=== PATIENT | female | born 1980 | race Caucasian/White ===

== ENCOUNTER 2024-01-05 09:45 | Outpatient (AMB) | payer OTHER, SELFPAY ==
--- NOTE | 2024-01-05 09:48 | AM.OFFWIN_ITS ---
Intake Vital Signs 01/05/24 09:59 01/05/24 10:05 Height 5 ft 4.17 in Weight 191 lb 4 oz BMI 32.7 BP 129/91 H 137/92 H Blood Pressure Location Lt brachial Rt brachial Position Sitting Sitting Respiration 14 Pulse 106 H Pulse Source Pulse Oximeter Temp 98.4 F Temp Source Temporal Artery Scan Pulse Oximetry (%) 96 Oxygen Delivery Method Room Air Intake Visit Reasons: Sore throat Intake Note: Sore throat Accompanied by: Child Allergies No Known Allergies [No Known Allergies*] Allergy (Verified 01/05/24 10:20) Medication List - Last Reconciled 01/05/24 by Shivani Awan, ROOFING APPRENTICE- multivitamin 1 tab PO DAILY Do you need a note to return to daycare/school/sports/work: No HPI HPI Comments History of Present Illness Details Here today with the complaints of a mild sore throat and runny nose. Symptoms started on Wednesday. Wonders if it is allergies. However also worried about strep. Reports that she was treated for strep 12/09/2023 with amoxicillin. She completed the course of therapy and her strep throat symptoms went away until Wednesday when she developed a mild sore throat. Has known seasonal allergies and is taking Zyrtec daily. Exposed to a child with recurrent strep pharyngitis. Denies fever, chills, painful swallowing. Review of Systems Const All systems reviewed & are unremarkable except as noted in HPI and below Physical Exam Vital Signs: Last Vital Signs Temp 98.4 F 01/05/24 09:59 Pulse 106 H 01/05/24 09:59 Resp 14 01/05/24 09:59 BP 137/92 H 01/05/24 10:05 Pulse Ox 96 01/05/24 09:59 Oxygen Delivery Method Room Air 01/05/24 09:59 BMI result Body Mass Index 32.7 Const Other: Awake alert NAD Sclera and conjunctiva clear bilat Nares patent, turbinates pale and edematous R>L no sinus tenderness with palpation bilat TM intact + effusions bilat MMM, pharynx WNL RRR LS CTAB Results AMB Rapid Strep AMB Rapid Strep Negative Last Edit by Bethany Rodríguez CMA on 01/05/24 11:0 1 Results Reviewed Results Reviewed: Laboratory Last Values Strep Scn Rapid Clinic Negative 06/05/24 10:11 Assessment & Plan Assessment & Plan (1) Sore throat: Code(s): J02.9 - Acute pharyngitis, unspecified (2) Pharyngitis: Code(s): J02.9 - Acute pharyngitis, unspecified Qualifiers: Pharyngitis/tonsillitis etiology: unspecified etiology Qualified Code(s): J02.9 - Acute pharyngitis, unspecified Plan: . Plan . Orders: Orders Throat Culture Today EMILE Velasco J02.9 - Acute pharyngitis, unspecified AMB Rapid Strep Screen Today Nikolai Kelley MD J02.9 - Acute pharyngitis, unspecified Patient Instructions: Rapid strep negative today. Request for strep culture. This was obtained. Patient will be contacted with the results. If positive we will send antibiotic to [facility] on [facility] in [place]. Exam today more consistent with an allergic cause. Advised to add Flonase 1 spray each nostril to her daily regimen. Continue taking daily antihistamine. Coding Level of Care Code Est Pt Level 4 (71142) Diagnoses Sore throat J02.9 Pharyngitis, unspecified etiology J02.9 Pharyngitis/tonsillitis etiology: unspecified etiology
[2024-01-05 09:59] VITALS: BP 129/91; PULSE 106; RESP 14; TEMP 36.9; O2SAT 96; BMI 32.7
[2024-01-05 10:05] VITALS: BP 137/92
--- OUTSIDE RECORDS SUMMARY | 2024-01-07 10:18 | XMS_ITS | Continuity of Care Document ---
[facility] Address [address], 4t [place] [address]- Care Team Providers Care Diagnostic Cardiac Sonographer Name Role Phone Lyndsey Castro DO Primary Care Physician Encounter [facility] Date(s): 09/19/19 - 09/26/19 [facility]la [employer] [facility] [address], 4th [place] [address]- Attending Physician: Day Amos MD Referring Physician: Lyndsey Castro DO Allergies, Adverse Reactions, Alerts Substance Reaction Severity Status NKA Active Medications miSOPROStol 200 mcg oral tablet See Instructions, Place 2 tablets between gum and cheek 3 hours before surgery, # 2 tablet, 0 Refills, Maintenance, 04/10/19 12:48:56 EDT Start Date: 04/10/19 Status: Ordered Problem List Condition Effective Dates Status Health Status Inform ant Rh negative(Confirmed) Active Procedures Procedure Date Related Diagnosis Body Site Status Bunionectomy 2018 Completed section 2016 Complete d [place] tooth 2013 Completed [place] tooth 1996 Completed Vital Signs Most recent to oldest [Reference Range]: 1 Weight 97.25 kg (09/19/19 3:13 PM) Blood Pressure [90-138/55-84 mm Hg] 130/ 85mm Hg (09/19/19 3:13 PM) Blood pressure sites Arm, right (09/19/19 3:13 PM) Dry Weight 97.25 kg (09/19/19 3:13 PM) Social History Social History Type Response Smoking Status Never (less than 100 in lifetime); Tobacco user in household: No entered on: 09/19/19 Sex
--- OUTSIDE RECORDS SUMMARY | 2024-01-07 10:18 | XMS_ITS | Continuity of Care Document ---
Author Organization [facility] Address [address] [facility] [address] [facility], 4t [place] [address]- Care Team Providers Care Paleontology Teacher Name Role Phone Matthew CLIFTONLyndsey Primary Care Physician En[facility] Date(s): 01/10/20 - 01/17/20 [facility] [address], [address]th [place] [address]- [facility] Attending Physician: Amber Cordero MD Referring Physician: Ariana Turcios MD Allergies, Adverse Reactions, Alerts Substance Reaction Severity Status NKA Active Medications aspirin 81 mg oral delayed release tablet 162 mg, 2, tablet, By Mouth, Daily, # 90 tablet, Refills 0, Maintenance, 10/26/19 22:01:00 EDT Start Date: 10/26/19 Status: Ordered Multivitamin, By Mouth, 0 Refills, Maintenance, 10/26/19 14:46:00 EDT Start Date: 10/26/19 Status: Ordered Problem List Condition Effective Dates Status Health Status Inform ant History of pre-eclampsia in prior , currently in second trimester(Confirmed) Active Multigravida of advanced mat ernal age in second trimester(Confirmed) Active Obesity during in second trimester(Confirmed) Active Rh negative status during pr egnancy, second trimester, single gestation(Confirmed) Active Single umbilical artery affe cting management of mother in [place] , antepartum(Confirmed) Active Maternal care for low transv erse scar from previous delivery(Confirmed) Active Vital Signs Most recent to oldest [Reference Range]: 1 Blood Pressure [90-138/55-84 mm Hg] 106/ 76mm Hg (01/10/20 10:09 AM) Blood pressure sites Arm, right (01/10/20 10:09 AM) Social History Social History Type Response Smoking Status Never (less than 100 in lifetime); Tobacco user in household: No entered on: 09/19/19 Sex
--- OUTSIDE RECORDS SUMMARY | 2024-01-07 10:18 | XMS_ITS | Continuity of Care Document ---
Author Organization [facility] Address [address] [place] [address]- Care Team Providers Care Basic Acoustic Analyst Name Role Phone Lyndsey Castro DO Primary Care Physician Encounter [facility] Date(s): 06/29/22 - 07/29/[address] [id number] Allergies, Adverse Reactions, Alerts No Known Allergies Immunizations Given and Recorded Vaccine Date Status Refusal Reason tetanus/diphtheria/pertussis, acel(Tdap) 01/23/20 Given Medications acetaminophen 325 mg oral tablet 650 mg, By Mouth, Every 4 hours, not to exceed 4000 mg/day, # 90 tablet, Refills 1, Tot. Refills 1,Maintenance, 04/13/20 9:21:00 EDT, Route to Pharmacy Electronically, [facility]/pharmacy #[id number], 165, cm, 04/10/20 20:24:00 EDT, Height, 109.5, kg, 04/11/20 10... Start Date: 04/13/20 Status: Ordered aspirin 81 mg oral delayed release tablet 162 mg, 2, tablet, By Mouth, Daily, # 90 tablet, Refills 0, Maintenance, 10/26/19 22:01:00 EDT Start Date: 10/26/19 Status: Ordered docusate sodium 100 mg oral capsule 100 mg, 1, capsule, By Mouth, 2 times a day, # 60 capsule, Refills 0, Tot. Refills 0, Maintenance, 04/13/20 9:21:00 EDT, Route to Pharmacy Electronically, [facility]/pharmacy #1234, 165, cm, 04/10/20 20:24:00 EDT, Height, 109.5, kg, 04/11/20 10:20:00 EDT, . Start Date: 04/13/20 Status: Ordered double electric breast pump double electric breast pump, See Instructions, # 1 each, Refills 0, Tot. Refills 0, Maintenance, , 03/04/20 11:53:00 EDT, Supply Start Date: 03/04/20 Status: Ordered ibuprofen 800 mg oral tablet 800 mg, 1, tablet, By Mouth, Every 8 hours, not to exceed 3200 mg/day with food or milk, # 90 tablet, Refills 0, Tot. Refills 0, Maintenance, 04/13/20 9:21:00 EDT, Route to Pharmacy Electronically, [facility]/pharmacy #1234, 165, cm, 04/10/20 20:24:00 EDT,... Start Date: 04/13/20 Status: Ordered Multivitamin, By Mouth, 0 Refills, Maintenance, 10/26/19 14:46:00 EDT Start Date: 10/26/19 Status: Ordered oxyCODONE 5 mg oral tablet 5 mg, 1, tablet, By Mouth, Every 3 hours, PRN, (7-10), # 5 tablet, Refills 0, Tot. Refills 0, Maintenance, Pain , Severe, 04/13/20 9:22:00 EDT, Route to Pharmacy Electronically, [facility]/pharmacy #[id number], Partial fill upon patient request, 165, cm, 04/10/20... Start Date: 04/13/20 Status: Ordered simethicone 80 mg oral tablet, chewable 80 mg, Chew, 3 times a day, PRN, # 90 tablet, Refills 0, Tot. Refills 0, Maintenance, Gas, 209:22:00 EDT, Route to Pharmacy Electronically, [facility]/pharmacy #1234, 165, cm, 04/10/20 20:24:00 EDT, Height, 109.5, kg, 04/11/20 10:20:00 EDT, Dry Weight Start Date: 04/13/20 Status: Ordered Problem List Condition Confirmation Course Effective Dates Status Health St atus Informant Abnormal findings on screening Confirmed Active Elevated blood pressure affecting , antepartum Confirmed Active History of pre-eclampsia in prior , currently in second trimester Confirmed Active Multigravida of advanced maternal age in second trimester Confirmed Active Obesity during in second trimester Confirmed Active Rh negative status during , second trimester, single gestation Confirmed Active Single umbilical artery affecting management of mother in [place] , antepartum Confirmed Active Maternal care for low transverse scar from previous delivery Confirmed Active Social History Social History Type Response Smoking Status Never (less than 100 in lifetime); Tobacco user in household: No entered on: 09/19/19 Sex Patient Care team information Care Team Personnel Name: Lyndsey Castro DO Position: [facility] Physician (General Medicine) Member Role: PCP Address: Address: [address] [place] [address] [place] [address]- Care Team Related Persons Name: DAQUAN COLON Address: [place] Address: [address] [place] [address] Name: ROSA ISELA COLON Address: [place] [address] [place] [address]
--- OUTSIDE RECORDS SUMMARY | 2024-01-07 10:18 | XMS_ITS | Continuity of Care Document ---
Author Organization [facility] [employer] [facility] Address [address] [place] [address], 4t [place] [address]- Care Team Providers Care Ground Mixer Name Role Phone Matthew CLIFTONLyndsey Primary Care Physician [id number] Date(s): 02/26/20 - 05/17/20 [facility] Shahla Maureen[employer] [facility] [address] [facility], [address]th [place] [address]- [facility] Attending Physician: Padmini Matson MD Referring Physician: Gil CARTAGENA, Amber Nina Allergies, Adverse Reactions, Alerts Substance Reaction Severity Status NKA Active Immunizations Given and Recorded Vaccine Date Status Refusal Reason tetanus/diphtheria/pertussis, acel(Tdap) 01/23/20 Given Medications acetaminophen 325 mg oral tablet 650 mg, By Mouth, Every 4 hours, not to exceed 4000 mg/day, # 90 tablet, Refills 1, Tot. Refills 1,Maintenance, 04/13/20 9:21:00 EDT, Route to Pharmacy Electronically, [facility]/pharmacy #[id number], 165, cm, 04/10/20 20:24:00 EDT, [...] 04/13/20 9:21:00 EDT, Route to Pharmacy Electronically, [facility]/pharmacy #1234, 165, cm, 04/10/20 20:24:00 EDT, [...] 04/13/20 9:21:00 EDT, Route to Pharmacy Electronically, [facility]/pharmacy #1234, 165, cm, 04/10/20 20:24:00 EDT,... Start Date: 04/13/20 Status: Ordered Multivitamin, By Mouth, 0 Refills, Maintenance, 10/26/19 14:46:00 EDT Start Date: 10/26/19 Status: Ordered oxyCODONE 5 mg oral tablet 5 mg, 1, tablet, By Mouth, Every 3 hours, PRN, (7-10), # 5 tablet, Refills 0, Tot. Refills 0, Maintenance, Pain , Severe, 04/13/20 9:22:00 EDT, Route to Pharmacy Electronically, [facility]/pharmacy #[id number], Partial fill upon patient request, 165, cm, 04/10/20... Start Date: 04/13/20 Status: Ordered simethicone 80 mg oral tablet, chewable 80 mg, Chew, 3 times a day, PRN, # 90 tablet, Refills 0, Tot. Refills 0, Maintenance, Gas, 209:22:00 EDT, Route to Pharmacy Electronically, [facility]/pharmacy #1234, 165, cm, 04/10/20 20:24:00 EDT, Height, 109.5, kg, 04/11/20 10:20:00 EDT, Dry Weight Start Date: 04/13/20 Status: Ordered Problem List Condition Effective Dates Status Health Status Inform ant Abnormal findings on prenata l screening(Confirmed) Active Elevated blood pressure affe cting , antepartum(Confirmed) Active History of pre-eclampsia in prior , currently in second trimester(Confirmed) Active Multigravida of advanced mat ernal age in second trimester(Confirmed) Active Obesity during in second trimester(Confirmed) Active Rh negative status during pr egnancy, second trimester, single gestation(Confirmed) Active Single umbilical artery affe cting management of mother in k[place] , antepartum(Confirmed) Active Maternal care for low transv erse scar from previous delivery(Confirmed) Active Social History Social History Type Response Smoking Status Never (less than 100 in lifetime); Tobacco user in household: No entered on: 09/19/19 Sex
--- OUTSIDE RECORDS SUMMARY | 2024-01-07 10:18 | XMS_ITS | Continuity of Care Document ---
Author Organization [facility] Address [address] [place] [address]- Care Team Providers Care Fashion Journalist Name Role Phone Matthew CLIFTONLyndsey Primary Care Physician Encounter [facility] Date(s): 11/27/19 - 12/27/[facility] [address] [place] [address] [facility] Attending Physician: Torey Jonas Admitting Physician: AdmtrTorey Referring Physician: Admtr, Torey Allergies, Adverse Reactions, Alerts Substance Reaction Severity [...]
--- OUTSIDE RECORDS SUMMARY | 2024-01-07 10:18 | XMS_ITS | Continuity of Care Document ---
Author Organization [facility] [employer] [facility] Address [address] [place] [address], 4t [place] [address]- Care Team Providers Care Aerospace Engineer Officer Armament Name Role Phone Lyndsey Castro DO Primary Care Physician ( [phone] Encounter [facility] Date(s): 02/23/20 - 03/01/20 [facility]la [facility] [address] [facility], 4th [place] [address]- [facility] Attending Physician: Amber Cordero MD Allergies, Adverse Reactions, Alerts Substance Reaction Severity Status NKA Active Immunizations Given and Recorded Vaccine Date Status Refusal Reason tetanus/diphtheria/pertussis, acel(Tdap) 01/23/20 Given Medications aspirin 81 mg oral delayed release [...] Most recent to oldest [Reference Range]: 1 Height 166 cm (02/23/20 1:50 PM) Weight 104 kg (02/23/20 1:50 PM) Body Mass Index [18.5-24.99] 37.74 *>HHI* (02/23/20 1:50 PM) Blood Pressure [90-138/55-84 mm Hg] 135/ 81mm Hg (02/23/20 1:50 PM) Blood pressure sites Arm, left (02/23/20 1:50 PM) Weight Obtained Via Standing scale (02/23/20 1:50 PM) Social History Social History Type Response Smoking Status Never (less than 100 in lifetime); Tobacco user in household: No entered on: 09/19/19 Sex
--- OUTSIDE RECORDS SUMMARY | 2024-01-07 10:18 | XMS_ITS | Continuity of Care Document ---
Author Organization [facility] [employer] [facility] Address [address] [place] [address], 4t [place] [address]- Care Team Providers Care Track Supervisor Name Role Phone Matthew CLIFTON Lyndsey Bart Primary Care Physician [id number] Date(s[facility]/26[facility]20 - 05/23/20 [facility] Shahla Maureen[employer] [facility] [address] [facility], [address]th [place] [address]- [facility] Attending Physician: Chiquita Velez MD Referring Physician: Gil CARTAGENA, Amber Nina Allergies, Adverse Reactions, Alerts Substance Reaction Severity Status NKA Active Immunizations Given and Recorded Vaccine Date Status Refusal Reason tetanus/diphtheria/pertussis, acel(Tdap) 01/23/20 Given Medications acetaminophen 325 mg oral tablet 650 mg, By Mouth, Every 4 hours, not to exceed 4000 mg/day, # 90 tablet, Refills 1, Tot. Refills 1,Maintenance, 04/13/20 9:21:00 EDT, Route to Pharmacy Electronically, [facility]/pharmacy #[id number], 165, cm, 04/10/20 20:24:00 EDT, [...] 04/13/20 9:21:00 EDT, Route to Pharmacy Electronically, [facility]/pharmacy #1234, 165, cm, 04/10/20 20:24:00 EDT, [...] 04/13/20 9:21:00 EDT, Route to Pharmacy Electronically, [facility]/pharmacy #1234, 165, cm, 04/10/20 20:24:00 EDT,... Start Date: 04/13/20 Status: Ordered Multivitamin, By Mouth, 0 Refills, Maintenance, 10/26/19 14:46:00 EDT Start Date: 10/26/19 Status: Ordered oxyCODONE 5 mg oral tablet 5 mg, 1, tablet, By Mouth, Every 3 hours, PRN, (7-10), # 5 tablet, Refills 0, Tot. Refills 0, Maintenance, Pain , Severe, 04/13/20 9:22:00 EDT, Route to Pharmacy Electronically, [facility]/pharmacy #1234, Partial fill upon patient request, 165, cm, 04/10/20... Start Date: 04/13/20 Status: Ordered simethicone 80 mg oral tablet, chewable 80 mg, Chew, 3 times a day, PRN, # 90 tablet, Refills 0, Tot. Refills 0, Maintenance, Gas, 209:22:00 EDT, Route to Pharmacy Electronically, [facility]/pharmacy #1234, 165, cm, 04/10/20 20:24:00 EDT, [...]
--- OUTSIDE RECORDS SUMMARY | 2024-01-07 10:18 | XMS_ITS | Continuity of Care Document ---
Author Organization [facility] [employer] [facility] Address [address] [place] [address], 4t [place] [address]- Care Team Providers Care Food Product Inspector Name Role Phone Matthew Lyndsey CLIFTON Primary Care Physician [id number] Date(s): 02/27/20 - 04/11/20 [facility] [employer] [address] [facility], 4th [place] [address]- [facility] Attending Physician: Day Amos MD Referring Physician: Amber Cordero MD Allergies, Adverse Reactions, Alerts Substance Reaction Severity Status NKA Active Immunizations Given and Recorded Vaccine Date Status Refusal Reason tetanus/diphtheria/pertussis, acel(Tdap) 01/23/20 Given Medications aspirin 81 mg oral delayed release tablet 162 mg, 2, tablet, By Mouth, Daily, # 90 tablet, Refills 0, Maintenance, 10/26/19 22:01:00 EDT Start Date: 10/26/19 Status: Ordered double electric breast pump double electric breast pump, See Instructions, # 1 each, Refills 0, Tot. Refills 0, Maintenance, , 03/04/20 11:53:00 EDT, Supply Start Date: 03/04/20 Status: Ordered Multivitamin, By Mouth, 0 Refills, [...]
--- OUTSIDE RECORDS SUMMARY | 2024-01-07 10:18 | XMS_ITS | Continuity of Care Document ---
Author Organization [facility] [employer] [facility] Address [address] [place] [address], [address]t [place] [address]- Care Team Providers Care Monotype Mechanic Name Role Phone Matthew Lyndsey CLIFTON [id number] Date(s): 02/26/20 - 05/12/20 [facility] Shahla Maureen[employer] [facility] [address] [facility], 4th [place] [address]- [facility] Attending Physician: Amber Cordero MD Allergies, Adverse Reactions, Alerts Substance Reaction Severity Status NKA Active Immunizations Given and Recorded Vaccine Date Status Refusal Reason tetanus/diphtheria/pertussis, acel(Tdap) 01/23/20 Given Medications acetaminophen 325 mg oral tablet 650 mg, By Mouth, Every 4 hours, not to exceed 4000 mg/day, # 90 tablet, Refills 1, Tot. Refills 1,Maintenance, 04/13/20 9:21:00 EDT, Route to Pharmacy Electronically, [facility]/pharmacy #[id number], 165, cm, 04/10/20 20:24:00 EDT, Height, [...] 04/13/20 9:21:00 EDT, Route to Pharmacy Electronically, [facility]/pharmacy #1234, 165, cm, 04/10/20 20:24:00 EDT, Height, 109.5, kg, 04/11/20 10:20:00 EDT, Start Date: 04/13/20 Status: Ordered double electric [...] 04/13/20 9:21:00 EDT, Route to Pharmacy Electronically, [facility]/pharmacy #1234, 165, cm, 04/10/20 20:24:00 EDT,... Start Date: 04/13/20 Status: Ordered Multivitamin, By Mouth, 0 Refills, Maintenance, 10/26/19 14:46:00 EDT Start Date: 10/26/19 Status: Ordered oxyCODONE 5 mg oral tablet 5 mg, 1, tablet, By Mouth, Every 3 hours, PRN, (7-10), # 5 tablet, Refills 0, Tot. Refills 0, Maintenance, Pain , Severe, 04/13/20 9:22:00 EDT, Route to Pharmacy Electronically, [facility]/pharmacy #[id number], Partial fill upon patient request, 165, cm, 04/10/20... Start Date: 04/13/20 Status: Ordered simethicone 80 mg oral tablet, chewable 80 mg, Chew, 3 times a day, PRN, # 90 tablet, Refills 0, Tot. Refills 0, Maintenance, Gas, 209:22:00 EDT, Route to Pharmacy Electronically, [facility]/pharmacy #1234, 165, cm, 04/10/20 20:24:00 EDT, Height, [...]
--- OUTSIDE RECORDS SUMMARY | 2024-01-07 10:18 | XMS_ITS | Continuity of Care Document ---
Author Organization [facility] Address [address] [place] [address], 4t [place] [address]- Care Team Providers Care Maintenance And Repair Worker Name Role Phone Matthew Lyndsey CLIFTON Primary Care Physician En[place] [facility] Date(s): 03/27/20 - 04/03/20 [facility] [address] [facility], 4th [place] [address]- [facility] Attending Physician: Day Amos MD Referring Physician: Gil CARTAGENA, Amber Nina [...]
--- OUTSIDE RECORDS SUMMARY | 2024-01-07 10:18 | XMS_ITS | Continuity of Care Document ---
Author Organization [facility] Mitch valeroviavoohalle [facility] Address [address] [place] [address], 4t [place] [address]- Care Team Providers Care Auto Parts Clerk Name Role Phone Matthew Lyndsey CLIFTON Primary Care Physician ( [phone] En[place] [facility] [place] Date(s): 04/09/20 - 04/16/20 [facility] Shahla Maureenviavoos [facility] [address] [facility], 4th [place] [address]- [facility] Attending Physician: Bronson CARTAGENA, Girma Gannon Allergies, Adverse Reactions, Alerts Substance Reaction Severity Status NKA Active Immunizations Given and Recorded Vaccine Date Status Refusal Reason tetanus/diphtheria/pertussis, acel(Tdap) 01/23/20 Given Medications acetaminophen 325 mg oral tablet 650 mg, By Mouth, Every 4 hours, not to exceed 4000 mg/day, # 90 tablet, Refills 1, Tot. Refills 1,Maintenance, 04/13/20 9:21:00 EDT, Route to Pharmacy Electronically, [facility]/pharmacy #[id number], 165, cm, 04/10/20 20:24:00 EDT, Height, [...] 04/13/20 9:21:00 EDT, Route to Pharmacy Electronically, [facility]/pharmacy #1234, 165, cm, 04/10/20 20:24:00 EDT, Height, [...] 04/13/20 9:21:00 EDT, Route to Pharmacy Electronically, [facility]/pharmacy #1234, 165, cm, 04/10/20 20:24:00 EDT,... Start Date: 04/13/20 Status: Ordered Multivitamin, By Mouth, 0 Refills, Maintenance, 10/26/19 14:46:00 EDT Start Date: 10/26/19 Status: Ordered oxyCODONE 5 mg oral tablet 5 mg, 1, tablet, By Mouth, Every 3 hours, PRN, (7-10), # 5 tablet, Refills 0, Tot. Refills 0, Maintenance, Pain , Severe, 04/13/20 9:22:00 EDT, Route to Pharmacy Electronically, [facility]/pharmacy #1234, Partial fill upon patient request, 165, cm, 04/10/20... Start Date: 04/13/20 Status: Ordered simethicone 80 mg oral tablet, chewable 80 mg, Chew, 3 times a day, PRN, # 90 tablet, Refills 0, Tot. Refills 0, Maintenance, Gas, 209:22:00 EDT, Route to Pharmacy Electronically, [facility]/pharmacy #1234, 165, cm, 04/10/20 20:24:00 EDT, Height, [...]
--- OUTSIDE RECORDS SUMMARY | 2024-01-07 10:18 | XMS_ITS | Continuity of Care Document ---
Author Organization [facility] Mitch valeroGlider.iohalle [facility] Address [address] [place] [address], 4t [place] [address]- Care Team Providers Care Heel Slugger Name Role Phone Matthew Lyndsey CLIFTON Primary Care Physician ( [phone] En[place] [facility] [place] Date(s): 02/27/20 - 05/02/20 [facility] [place] MaureenGlider.ios [facility] [address] [facility], 4th [place] [address]- [facility] Attending Physician: Day Amos MD [...] 04/13/20 9:21:00 EDT, Route to Pharmacy Electronically, [facility]/pharmacy #1234, 165, cm, 04/10/20 20:24:00 EDT, [...] 04/13/20 9:21:00 EDT, Route to Pharmacy Electronically, [facility]/pharmacy #1234, 165, cm, 04/10/20 20:24:00 EDT, [...] 9:21:00 EDT, [facility], 165, cm, 04/10/20 20:24:00 EDT,... Start Date: 04/13/20 Status: Ordered Multivitamin, By Mouth, 0 Refills, Maintenance, 10/26/19 14:46:00 EDT Start Date: 10/26/19 Status: Ordered oxyCODONE 5 mg oral tablet 5 mg, 1, tablet, By Mouth, Every 3 hours, PRN, (7-10), # 5 tablet, Refills 0, Tot. Refills 0, Maintenance, Pain , Severe, 04/13/20 9:22:00 EDT, Route to Pharmacy Electronically, [facility]/pharmacy #1234, Partial fill upon patient request, 165, cm, 04/10/20... Start Date: 04/13/20 Status: Ordered simethicone 80 mg oral tablet, chewable 80 mg, Chew, 3 times a day, PRN, # 90 tablet, Refills 0, Tot. Refills 0, Maintenance, Gas, :22:00 EDT, Route to Pharmacy Electronically, [facility]/pharmacy #1234, 165, cm, 04/10/20 20:24:00 EDT, [...] recent to oldest [Reference Range]: 1 Height 165 cm (04/10/20 8:24 PM) Weight 109.5 kg (04/11/20 10:19 AM) Pulse Rate [55-90 bpm] 122 bpm *H* (04/11/20 10:19 AM) Body Mass Index [18.5-24.99] 40.22 *>HHI* (04/11/20 10:19 AM) Blood Pressure [90-138/55-84 mm Hg] 129/ 88mm Hg (04/11/20 10:19 AM) Respiratory Rate [16-30 br/min] 18 br/mi n (04/11/20 10:19 AM) Temperature [96.8-100.4 DegF] 98.3 DegF (04/11/20 10:19 AM) Blood pressure sites Arm, right (04/11/20 10:19 AM) Temperature Route Oral (04/11/20 10:19 AM) Dry Weight 109.5 kg (04/11/20 10:19 AM) Social History Social History Type Response Smoking Status Never (less than 100 in lifetime); Tobacco user in household: No entered on: 09/19/19 Sex
--- OUTSIDE RECORDS SUMMARY | 2024-01-07 10:18 | XMS_ITS | Continuity of Care Document ---
Author Organization [facility] Mitch valeroPlayhouseSquarehalle [facility] Address [address] [place] [address], 4t [place] [address]- Care Team Providers Care Vice President Of Nursing Name Role Phone Matthew Lyndsey CLIFTON Primary Care Physician [place] [facility] [place]20 - 05/16/20 [facility] Shahla MaureenPlayhouseSquares [facility] [address] [facility], 4th [place] [address]- [facility] Attending Physician: Day Amos MD Referring Physician: [...] 04/13/20 9:21:00 EDT, Route to Pharmacy Electronically, [facility]/pharmacy #1234, 165, cm, 04/10/20 20:24:00 EDT, [...] 04/13/20 9:21:00 EDT, Route to Pharmacy Electronically, [facility]/pharmacy #1234, 165, cm, 04/10/20 20:24:00 EDT, [...] 04/13/20 9:21:00 EDT, Route to Pharmacy Electronically, [facility]/pharmacy #1234, 165, cm, 04/10/20 20:24:00 EDT,... Start Date: 04/13/20 Status: Ordered Multivitamin, By Mouth, 0 Refills, Maintenance, 10/26/19 14:46:00 EDT Start Date: 10/26/19 Status: Ordered oxyCODONE 5 mg oral tablet 5 mg, 1, tablet, By Mouth, Every 3 hours, PRN, (7-10), # 5 tablet, Refills 0, Tot. Refills 0, Maintenance, Pain , Severe, 04/13/20 9:22:00 EDT, Route to Pharmacy Electronically, [facility]/pharmacy #1234, Partial fill upon patient request, 165, cm, 04/10/20... Start Date: 04/13/20 Status: Ordered simethicone 80 mg oral tablet, chewable 80 mg, Chew, 3 times a day, PRN, # 90 tablet, Refills 0, Tot. Refills 0, Maintenance, Gas, 209:22:00 EDT, Route to Pharmacy Electronically, [facility]/pharmacy #1234, 165, cm, 04/10/20 20:24:00 EDT, [...]
--- OUTSIDE RECORDS SUMMARY | 2024-01-07 10:18 | XMS_ITS | Continuity of Care Document ---
Author Organization [facility] Mitch nTalysts [facility] Address [address] [place] [address], 4t [place] [address]- Care Team Providers Care Boat Outfitter Name Role Phone Matthew CLIFTONLyndsey Primary Care Physician [place] [facility] [place] Date(s[place] 03/19/20 - 03/26/20 [facility] Shahla [facility] [address] [facility], 4th [place] [address]- [facility] Attending Physician: Nikolai Duarte MD Admitting Physician: Day Amos MD Referring Physician: Amber [...]
--- OUTSIDE RECORDS SUMMARY | 2024-01-07 10:18 | XMS_ITS | Continuity of Care Document ---
Author Organization [facility] Address [address] [facility], 4t [place] [address]- Care Team Providers Care Door Clamper Name Role Phone Matthew CLIFTONLyndsey Primary Care Physician Encounter [facility] Date(s): 12/26/19 - 01/02/20 [facility] [place] [address] [facility], 4th [place] [address]- [facility] Attending Physician: Day Amos MD Referring Physician: Ariana Turcios MD Allergies, [...]
--- OUTSIDE RECORDS SUMMARY | 2024-01-07 10:18 | XMS_ITS | Continuity of Care Document ---
Author Organization [facility] Mitch nBuffers [facility] Address [address] [place] [address], 4t [place] [address]- Care Team Providers Care Advanced Quality Engineer Name Role Phone Matthew Lyndsey CLIFTON Primary Care Physician [id number] Date(s): 04/04/20 - 04/11/20 [facility] Shahla WomenBuff[facility] [address] [facility], 4th [place] [address]- [facility] Attending Physician: Obey CARTAGENA, Girma Page Referring Physician: Gil CARTAGENA, Amber Nina Allergies, [...] oldest [Reference Range]: 1 Height 166 cm (04/04/20 10:00 AM) Weight 109.54 kg (04/04/20 10:00 AM) Body Mass Index [18.5-24.99] 39.75 *>HHI* (04/04/20 10:00 AM) Blood Pressure [90-138/55-84 mm Hg] 124/ 80mm Hg (04/04/20 10:00 AM) Blood pressure sites Arm, left (04/04/20 10:00 AM) Weight Obtained Via Standing scale (04/04/20 10:00 AM) Social History Social History Type Response Smoking Status Never (less than 100 in lifetime); Tobacco user in household: No entered on: 09/19/19 Sex
--- OUTSIDE RECORDS SUMMARY | 2024-01-07 10:18 | XMS_ITS | Continuity of Care Document ---
Author Organization [facility] Mitch nLifeBooks [facility] Address [address] [facility], 4t [place] [address]- Care Team Providers Care A R Collections Rep Name Role Phone Matthew Lyndsey CLIFTON Primary Care Physician [place] [facility] [place]): 03/19/20 - 03/26/20 [facility] Shahla [employer] [address] [facility], 4th [place] [address]- [facility] Attending Physician: Chiquita Velez MD Allergies, Adverse Reactions, Alerts Substance Reaction [...]
--- OUTSIDE RECORDS SUMMARY | 2024-01-07 10:18 | XMS_ITS | Continuity of Care Document ---
Author Organization [facility] Mitch nIN-PIPE TECHNOLOGYs [facility] Address [address] [facility], 4t [place] [address]- Care Team Providers Care Quantitative Consultant Name Role Phone Matthew Lyndsey CLIFTON Primary Care Physician En[place] [facility] [place] Date(s): 03/04/20 - 04/03/20 [facility] Arjay WomenIN-PIPE TECHNOLOGYs [facility] [address] [facility], 4th [place] [address]- [facility] Allergies, Adverse Reactions, Alerts Substance Reaction Severity [...]
--- OUTSIDE RECORDS SUMMARY | 2024-01-07 10:18 | XMS_ITS | Continuity of Care Document ---
Author Organization [facility] Mtich nOutlines [facility] Address [address] [facility], 4t [place] [address]- Care Team Providers Care Conversion Developer Name Role Phone Matthew Lyndsey CLIFTON Primary Care Physician En[place] [facility] [place] Date(s): 04/04/20 - 04/11/20 [facility] [employer] [facility] [address] [facility], 4th [place] [address]- [facility] Attending Physician: Bronson CARTAGENA, Girma Gannon Allergies, [...]
--- OUTSIDE RECORDS SUMMARY | 2024-01-07 10:18 | XMS_ITS | Continuity of Care Document ---
Author Organization [facility] ter Address [address] [place] [address]- Care Team Providers Care Racquet Maker Name Role Phone Lyndsey Castro DO Primary Care Physician ( [phone] [place] [facility] [place] 04/11/20 - 04/13/[address] [address]- [facility] Discharge Disposition: A-D/C Home Attending Physician: Day Amos MD Admitting Physician: Day Amos MD Referring Physician: Bette CARTAGENA, Day Nina Allergies, Adverse Reactions, Alerts Substance Reaction Severity Status NKA Active Immunizations Given and Recorded Vaccine Date Status Refusal Reason tetanus/diphtheria/pertussis, acel(Tdap) 01/23/20 Given Medications acetaminophen 325 mg oral tablet 650 mg, By Mouth, Every 4 hours, not to exceed 4000 mg/day, # 90 tablet, Refills 1, Tot. Refills 1,Maintenance, 04/13/20 9:21:00 EDT, Route to Pharmacy Electronically, [facility]/pharmacy #1234, 165, cm, 04/10/20 20:24:00 EDT, Height, [...] 04/13/20 9:21:00 EDT, Route to Pharmacy Electronically, [facility]/pharmacy #1234, 165, cm, 04/10/20 20:24:00 EDT, Height, [...] EDT, [facility], [facility], cm, 04/10/20 20:24:00 EDT,... Start Date: 04/13/20 Status: Ordered Multivitamin, By Mouth, 0 Refills, Maintenance, 10/26/19 14:46:00 EDT Start Date: 10/26/19 Status: Ordered oxyCODONE 5 mg oral tablet 5 mg, 1, tablet, By Mouth, Every 3 hours, PRN, (7-10), # 5 tablet, Refills 0, Tot. Refills 0, Maintenance, Pain , Severe, 04/13/20 9:22:00 EDT, [facility], Partial fill upon patient request, 165, cm, 04/10/20... Start Date: 04/13/20 Status: Ordered simethicone 80 mg oral tablet, chewable 80 mg, Chew, 3 times a day, PRN, # 90 tablet, Refills 0, Tot. Refills 0, Maintenance, Gas, 209:22:00 EDT, Route to Pharmacy Electronically, [facility]/pharmacy #1234, 165, cm, 04/10/20 20:24:00 EDT, Height, [...] transv erse scar from previous delivery(Confirmed) Active Procedures Procedure Date Related Diagnosis Body Site Status delivery only; 04/11/20 C ompleted Vital Signs Most recent to oldest [Reference Range]: 1 2 3 4 Oxygen Saturation [94-100 %] 20 % *L* (04/13/20 9:30 AM) 92 % *L* (04/13/20 12:30 AM) 96 % (04/12/20 4:00 PM) Pulse Rate [55-90 bpm] 83 bpm (04/13/20 9:30 AM) 92 bpm *H* (04/13/20 12:30 AM) 98 bpm *H* (04/12/20 4:00 PM) Blood Pressure [90-138/55-84 mm Hg] 144/79mm Hg *H* (04/13/20 9:30 AM) 130/90mm Hg (04/13/20 12:30 AM) 132/78mm Hg (04/12/20 4:00 PM) Respiratory Rate [16-30 br/min] 16 br/min (04/13/20 1:53 PM) 17 br/min (04/13/20 10:20 AM) 17 br/min (04/13/20 10:19 AM) 17 br/min (04/13/20 10:19 AM) Temperature [96.8-100.4 DegF] 98.1 DegF (04/13/20 9:30 AM) 98.2 DegF (04/13/20 12:30 AM) 98 DegF (04/12/20 4:00 PM) Mode of Delivery (Oxygen) Room air (04/13/20 12:30 AM) Room air (04/12/20 4:00 PM) Room air (04/12/20 8:00 AM) Blood pressure sites Arm, right (04/13/20 12:30 AM) Arm, right (04/12/20 8:00 AM) Arm, right (04/12/20 12:00 AM) Temperature Route Oral (04/13/20 9:30 AM) Oral (04/13/20 12:30 AM) Oral (04/12/20 4:00 PM) Social History Social History Type Response Smoking Status Never (less than 100 in lifetime); Tobacco user in household: No entered on: 09/19/19 Sex
--- OUTSIDE RECORDS SUMMARY | 2024-01-07 10:18 | XMS_ITS | Continuity of Care Document ---
Author Organization [facility] Address [address] [facility], 4t [place] [address]- Care Team Providers Care Fly Setter Name Role Phone Lyndsey Castro DO Primary Care Physician En[place] [facility] [place] Date(s): 10/03/19 - 10/10/19 [facility] Shahla Reddy's [facility] [address] [facility], 4th [place] [address]- Attending Physician: Ryann Trammell CNM Allergies, Adverse Reactions, Alerts Substance Reaction Severity Status NKA Active Medications miSOPROStol 200 mcg oral tablet See Instructions, Place 2 tablets between gum and cheek 3 hours before surgery, # 2 tablet, 0 Refills, Maintenance, 04/10/19 12:48:56 EDT Start Date: 04/10/19 Status: Ordered Problem List Condition Effective Dates Status Health Status Inform ant Rh negative(Confirmed) Active Social History Social History Type Response Smoking Status Never (less than 100 in lifetime); Tobacco user in household: No entered on: 09/19/19 Sex
--- OUTSIDE RECORDS SUMMARY | 2024-01-07 10:18 | XMS_ITS | Continuity of Care Document ---
Author Organization [facility] Mitch nBenefit Mobiles [facility] Address [address] [place] [address], 4t [place] [address]- Care Team Providers Care Audioprosthologist Name Role Phone Matthew Lyndsey CLIFTON Primary Care Physician En[place] [facility] [place] Date(s): 01/15/20 - 03/23/20 [facility] Shahla [facility] [facility] [address] [facility], 4th [place] [address]- [facility] Attending Physician: Jaime Dao MD Referring Physician: Amber Cordero MD Allergies, [...]
--- OUTSIDE RECORDS SUMMARY | 2024-01-07 10:18 | XMS_ITS | Continuity of Care Document ---
Author Organization [facility] Mitch n's Group Address [address] [facility], 4t [place] [address]- Care Team Providers Care Improvement Leader Name Role Phone Matthew CLIFTONLyndsey Bart Primary Care Physician [place] [facility] [place] 02/06/20 - 02/13/20 [facility] Adrian [facility] [facility] [address], 4th [place] [address]- [facility] Attending Physician: Chiquita Velez MD Referring Physician: Amber Cordero MD Allergies, [...]
--- OUTSIDE RECORDS SUMMARY | 2024-01-07 10:18 | XMS_ITS | Continuity of Care Document ---
Author Organization [facility] Mitch n's Group Address [address] [facility], 4t [place] [address]- Care Team Providers Care Animal Care Giver Name Role Phone Matthew CLIFTONLyndsey Primary Care Physician En[facility] [place] Date(s): 01/23/20 - 01/30/20 [facility] [place] [facility] [address], 4th [place] [address]- [facility] Attending Physician: Chiquita Velez MD Referring Physician: Ariana Turcios MD Allergies, [...] recent to oldest [Reference Range]: 1 2 Height 166 cm (01/23/20 2:13 PM) 166 cm (01/23/20 1:40 PM) Weight 103.64 kg (01/23/20 1:40 PM) Body Mass Index [18.5-24.99] 37.61 *>HHI* (01/23/20 1:40 PM) Blood Pressure [90-138/55-84 mm Hg] 135/ 87mm Hg (01/23/20 2:13 PM) 142/97mm Hg *H* (01/23/20 1:40 PM) Blood pressure sites Arm, right (01/23/20 2:13 PM) Arm, left (01/23/20 1:40 PM) Weight Obtained Via Standing scale (01/23/20 1:40 PM) Social History Social History Type Response Smoking Status Never (less than 100 in lifetime); Tobacco user in household: No entered on: 09/19/19 Sex
--- OUTSIDE RECORDS SUMMARY | 2024-01-07 10:18 | XMS_ITS | Continuity of Care Document ---
Author Organization [facility] Mitch nStrangeLogics [facility] Address [address] [facility], 4t [place] [address]- Care Team Providers Care Field Administrator Name Role Phone Matthew Lyndsey CLIFTON Primary Care Physician ( [phone] En[place] [facility] [place] Date(s): 02/27/20 - 03/28/20 [facility] Shahla WomenStrangeLog[employer] [facility] [address] [facility], 4th [place] [address]- [facility] Allergies, Adverse Reactions, Alerts Substance Reaction Severity [...]
--- OUTSIDE RECORDS SUMMARY | 2024-01-07 10:18 | XMS_ITS | Continuity of Care Document ---
Author Organization [facility] Mitch ns [facility] Address [address] [facility], 4t [place] [address]- Care Team Providers Care Kelly Machine Operator Name Role Phone Matthew CLIFTONLyndsey Primary Care Physician [place] [facility] [place]): [place]21/19 - 11/28/19 [facility] Sipseydarron ReddyAnkis [facility] [address] [facility], 4th [place] [address]- Attending Physician: Chiquita Velez MD Referring Physician: Jaime Dao MD Allergies, Adverse Reactions, Alerts Substance Reaction [...]
--- OUTSIDE RECORDS SUMMARY | 2024-01-07 10:18 | XMS_ITS | Continuity of Care Document ---
Author Organization [facility] Mitch nChaoWIFIs [facility] Address [address] [facility], 4t [place] [address]- Care Team Providers Care Pattern Hand Name Role Phone Matthew Lyndsey CLIFTON Primary Care Physician [place] [facility] [place] 03/07/20 - 04/06/20 [facility] [place] WomenChaoWIFIs [facility] [address] [facility], 4th [place] [address]- [facility] Allergies, Adverse Reactions, Alerts Substance Reaction Severity [...]
--- OUTSIDE RECORDS SUMMARY | 2024-01-07 10:18 | XMS_ITS | Continuity of Care Document ---
Author Organization [facility] ter Address [address] [place] [address]- Care Team Providers Care Intelligence Officer Basic Name Role Phone MatthewLyndsey rm DO Primary Care Physician En[facility] Date(s): 09/19/19 - 09/19/[address] [address]- [facility] Attending Physician: Day Amos MD Allergies, Adverse Reactions, Alerts Substance Reaction [...]
--- OUTSIDE RECORDS SUMMARY | 2024-01-07 10:18 | XMS_ITS | Continuity of Care Document ---
Author Organization [facility] Mitch nEpitiros [facility] Address [address] [facility], 4t [place] [address]- Care Team Providers Care Director Physical Therapy Name Role Phone Matthew CLIFTON Lyndsey Bart Primary Care Physician [place] [facility] [place] 12/21/19 - 12/28/19 [facility] Mary D WomenEpitiros [facility] [address] [facility], 4th [place] [address]- [facility] Attending Physician: Karolina CARTAGENA, Ariana Nina Referring Physician: Jaime Dao MD Allergies, Adverse [...] oldest [Reference Range]: 1 Height 166 cm (12/21/19 9:04 AM) Weight 101.16 kg (12/21/19 9:04 AM) Body Mass Index [18.5-24.99] 36.71 *>HHI* (12/21/19 9:04 AM) Blood Pressure [90-138/55-84 mm Hg] 115/ 90mm Hg (12/21/19 9:04 AM) Blood pressure sites Arm, right (12/21/19 9:04 AM) Weight Obtained Via Standing scale (12/21/19 9:04 AM) Social History Social History Type Response Smoking Status Never (less than 100 in lifetime); Tobacco user in household: No entered on: 09/19/19 Sex
--- OUTSIDE RECORDS SUMMARY | 2024-01-07 10:18 | XMS_ITS | Continuity of Care Document ---
Author Organization [facility] Address [address] [facility], 4t [place] [address]- Care Team Providers Care Retail Management Trainee Name Role Phone Matthew CLIFTONLyndsey Primary Care Physician [place] [facility] [place](s): 10/03/19 - 12/27/19 [facility] [place] [facility] [address], 4th [place] [address]- [facility] Attending Physician: Morelia Barclay MD Referring Physician: Ryann Trammell CNM Allergies, Adverse Reactions, [...]
--- OUTSIDE RECORDS SUMMARY | 2024-01-07 10:18 | XMS_ITS | Continuity of Care Document ---
Author Organization [facility] Mitch nMachine Safety [employer]angements [facility] Address [address] [facility], 4t [place] [address]- Care Team Providers Care Prefabricated Houses Trimmer Name Role Phone Matthew Lyndsey CLIFTON Primary Care Physician En[place] [facility] Date(s): 03/21/20 - 03/28/20 [facility] Shahla [employer] [facility] [address] [facility], 4th [place] [address]- [facility] Attending Physician: Amber Cordero MD Allergies, Adverse [...]
--- OUTSIDE RECORDS SUMMARY | 2024-01-07 10:18 | XMS_ITS | Continuity of Care Document ---
Author Organization [facility] nP3 [facility] Address [address] [place] [address], [address] [place] [address]- Care Team Providers Care Undercutter Name Role Phone Lyndsey Castro DO Primary Care Phys[id number] Date(s[facility] 04/09/20 - 05/09/20 [facility] Marshall MaureenP3 [facility] [address] [facility], [address]th [place] [address]- [facility] Attending Physician: Torey Jonas Admitting Physician: AdmtrTorey Referring Physician: Admtr, ArJonathan Allergies, Adverse Reactions, Alerts Substance Reaction Severity Status NKA Active Immunizations Given and Recorded Vaccine Date Status Refusal Reason tetanus/diphtheria/pertussis, acel(Tdap) 01/23/20 Given Medications acetaminophen 325 mg oral tablet 650 mg, By Mouth, Every 4 hours, not to exceed 4000 mg/day, # 90 tablet, Refills 1, Tot. Refills 1,Maintenance, 04/13/20 9:21:00 EDT, Route to Pharmacy Electronically, [facility]/pharmacy #[id number], 165, cm, 04/10/20 20:24:00 EDT, Height, [...] 04/13/20 9:21:00 EDT, Route to Pharmacy Electronically, [facility]/pharmacy #[id number], 165, cm, 04/10/20 20:24:00 EDT, Height, [...] 04/13/20 9:21:00 EDT, Route to Pharmacy Electronically, [facility]/pharmacy #[id number], 165, cm, 04/10/20 20:24:00 EDT,... Start Date: 04/13/20 Status: Ordered Multivitamin, By Mouth, 0 Refills, Maintenance, 10/26/19 14:46:00 EDT Start Date: 10/26/19 Status: Ordered oxyCODONE 5 mg oral tablet 5 mg, 1, tablet, By Mouth, Every 3 hours, PRN, (7-10), # 5 tablet, Refills 0, Tot. Refills 0, Maintenance, Pain , Severe, 04/13/20 9:22:00 EDT, Route to Pharmacy Electronically, [facility]/pharmacy #[id number], Partial fill upon patient request, 165, cm, 04/10/20... Start Date: 04/13/20 Status: Ordered simethicone 80 mg oral tablet, chewable 80 mg, Chew, 3 times a day, PRN, # 90 tablet, Refills 0, Tot. Refills 0, Maintenance, Gas, :22:00 EDT, Route to Pharmacy Electronically, [facility]/pharmacy #[id number], 165, cm, 04/10/20 20:24:00 EDT, Height, [...]
--- OUTSIDE RECORDS SUMMARY | 2024-01-07 10:18 | XMS_ITS | Continuity of Care Document ---
Author Organization [facility] Shahla Meyer n's [facility] Address [address] [facility], [address]t [place] [address]- Care Team Providers Care Shoeshiner Name Role Phone MatthewLyndsey rm DO Primary Care Physician [place] [facility] [place]/20 - 03/01/20 [facility] [place] [address], [address]th [place] [address]- [facility] Allergies, Adverse Reactions, Alerts Substance Reaction Severity [...]
--- OUTSIDE RECORDS SUMMARY | 2024-01-07 10:18 | XMS_ITS | Continuity of Care Document ---
Author Organization [facility] Mitch [facility]Ns[facility] Address [address] [place] [address], [address] [place] [address]- Care Team Providers Care Trust Officer Name Role Phone Matthew Lyndsey CLIFTON Primary Care Physician ( [phone] En[facility] [place] Date(s): 03/04/20 - 03/11/20 [facility] [employer] [facility] [address] [facility], [address]th [place] [address]- [facility] Attending Physician: Padmini Matson MD [...] oldest [Reference Range]: 1 Height 166 cm (03/04/20 8:23 AM) Weight 105.85 kg (03/04/20 8:23 AM) Body Mass Index [18.5-24.99] 38.41 *>HHI* (03/04/20 8:23 AM) Blood Pressure [90-138/55-84 mm Hg] 142/ 83mm Hg *H* (03/04/20 8:23 AM) Blood pressure sites Arm, right (03/04/20 8:23 AM) Weight Obtained Via Standing scale (03/04/20 8:23 AM) Social History Social History Type Response Smoking Status Never (less than 100 in lifetime); Tobacco user in household: No entered on: 09/19/19 Sex
--- OUTSIDE RECORDS SUMMARY | 2024-01-07 10:18 | XMS_ITS | Continuity of Care Document ---
Author Organization [facility] Address [address] [place] [address], [address] [place] [address]- Care Team Providers Care Breeder Hen Service Technician Name Role Phone Matthew Lyndsey CLIFTON Primary Care Physician [place] [facility] [place] 04/03[place]20 [facility] [address] [facility], [address]th [place] [address]- [facility] Attending Physician: Bronson CARTAGENA, Girma Gannon Referring Physician: Gil CARTAGENA, Amber Nina Allergies, [...] oldest [Reference Range]: 1 Height 166 cm (03/27/20 9:15 AM) Weight 105.7 kg (03/27/20 9:15 AM) Body Mass Index [18.5-24.99] 38.36 *>HHI* (03/27/20 9:15 AM) Blood Pressure [90-138/55-84 mm Hg] 108/ 78mm Hg (03/27/20 9:15 AM) Blood pressure sites Arm, left (03/27/20 9:15 AM) Weight Obtained Via Standing scale (03/27/20 9:15 AM) Social History Social History Type Response Smoking Status Never (less than 100 in lifetime); Tobacco user in household: No entered on: 09/19/19 Sex
--- OUTSIDE RECORDS SUMMARY | 2024-01-07 10:18 | XMS_ITS | Continuity of Care Document ---
Author Organization [facility] Mitch valeroV[facility]rah[facility] Address [address] [place] [address], [address] [place] [address]- Care Team Providers Care Maintenance Apprentice Name Role Phone Matthew CLIFTONLyndsey Primary Care Phys[id number] Date[facility] 03/21/20 - 05/02/20 [facility] Mayer MaureenVizerras [facility] [address] [facility], [address]th [place] [address]- [facility] Attending Physician: Chiquita Velez MD Referring Physician: [...] 04/13/20 9:21:00 EDT, Route to Pharmacy Electronically, [facility]/pharmacy #[id number], 165, cm, 04/10/20 [...] 04/13/20 9:21:00 EDT, Route to Pharmacy Electronically, [facility]/pharmacy #1234, 165, cm, 04/10/20 [...] 04/13/20 9:21:00 EDT, Route to Pharmacy Electronically, [facility]/pharmacy #1234, 165, cm, 04/10/20 20:24:00 EDT,... Start Date: 04/13/20 Status: Ordered Multivitamin, By Mouth, 0 Refills, Maintenance, 10/26/19 14:46:00 EDT Start Date: 10/26/19 Status: Ordered oxyCODONE 5 mg oral tablet 5 mg, 1, tablet, By Mouth, Every 3 hours, PRN, (7-10), # 5 tablet, Refills 0, Tot. Refills 0, Maintenance, Pain , Severe, 04/13/20 9:22:00 EDT, Route to Pharmacy Electronically, [facility]/pharmacy #1234, Partial fill upon patient request, 165, cm, 04/10/20... Start Date: 04/13/20 Status: Ordered simethicone 80 mg oral tablet, chewable 80 mg, Chew, 3 times a day, PRN, # 90 tablet, Refills 0, Tot. Refills 0, Maintenance, Gas, 209:22:00 EDT, Route to Pharmacy Electronically, [facility]/pharmacy #1234, 165, cm, 04/10/20 [...]
--- OUTSIDE RECORDS SUMMARY | 2024-01-07 10:18 | XMS_ITS | Continuity of Care Document ---
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 Phone Lyndsey Castro DO Primary Care Physician Encounter [facility] [place] Date(s): 10/26/19 - 11/02/19 [facility] [address] [facility], [address]th [place] [address]- Attending Physician: Jaime Dao MD Referring Physician: Lyndsey Castro DO Allergies, [...] Health Status Inform ant Rh negative(Confirmed) Active Vital Signs Most recent to oldest [Reference Range]: 1 Height 166 cm (10/26/19 2:45 PM) Weight 95.6 kg (10/26/19 2:45 PM) Body Mass Index [18.5-24.99] 34.69 *>HHI* (10/26/19 2:45 PM) Blood Pressure [90-138/55-84 mm Hg] 141/ 89mm Hg *H* (10/26/19 2:45 PM) Blood pressure sites Arm, left (10/26/19 2:45 PM) Weight Obtained Via Standing scale (10/26/19 2:45 PM) Social History Social History Type Response Smoking Status Never (less than 100 in lifetime); Tobacco user in household: No entered on: 09/19/19 Sex
== END 2024-01-05 10:50 | disposition home or self-care (01) ==
PROVIDERS: Visit Provider Nurse Practitioner Family
DX: J02.9 Acute pharyngitis, unspecified (principal)
CPT/HCPCS: 87880; 99214

== ENCOUNTER 2024-01-05 10:33 | Outpatient (REF) | payer OTHER, SELFPAY | END 2024-01-05 10:34 | disposition home or self-care (01) | LOC: HO.LAB 10:33 | PROVIDERS: Visit Provider Nurse Practitioner Family | DX: J02.9 Acute pharyngitis, unspecified (principal) | CPT/HCPCS: 87070 ==